=== PATIENT | male | born 1970 | race Caucasian/White ===

== ENCOUNTER 2021-03-13 06:11 | Emergency (ER) | payer OTHER ==
[~2021-03-13] VITALS: Ht 188 cm; Wt 100.0 kg
[2021-03-13] MEDS ORDERED: VITMTA PO (06:34)
[2021-03-13] MEDS ORDERED: VITATAB74 PO (06:34)
[2021-03-13] MEDS ORDERED: BACI1TAB4 PO (06:34)
[2021-03-13] MEDS ORDERED: KETOROLAC 60MG 2ML VIAL IM ONE (07:40)
[2021-03-13] MEDS ORDERED: diazePAM 10 MG TAB PO ONE (07:40)
--- OUTSIDE RECORDS SUMMARY | 2021-03-13 07:59 | CCD ---
Author Author [facility] Organization [facility] Address Unknown Phone Unavailable Care Team Providers Care Assistant Drafter Name Role Phone LAROCK, Anneliese SALAZAR [employer] TIME SALES SUPERVISOR Unavailable Unavailable LAROCK, Anneliese SALAZAR RADIO TIME SALES SUPERVISOR Unavailable Unavailable LAROCK, Anneliese SALAZAR RADIO TIME SALES SUPERVISOR Unavailable Unavailable LAROCK, Anneliese SALAZAR RADIO TIME SALES SUPERVISOR Unavailable Unavailable LAROCK, Anenliese SALAZAR RADIO TIME SALES SUPERVISOR Unavailable Unavailable LAROCK, Anneliese SALAZAR RADIO TIME SALES SUPERVISOR Unavailable Unavailable LAROCK, Anneliese SALAZAR RADIO TIME SALES SUPERVISOR Unavailable Unavailable LAROCK, Anneliese SALAZAR RADIO TIME SALES SUPERVISOR Unavailable Unavailable LAROCK, Anneliese SALAZAR RADIO TIME SALES SUPERVISOR Unavailable Unavailable LAROCK, Anneliese SALAZAR RADIO TIME SALES SUPERVISOR Unavailable Unavailable LAROCK, Anneliese SALAZAR RADIO TIME SALES SUPERVISOR Unavailable Unavailable LAROCK, Anneliese SALAZAR RADIO TIME SALES SUPERVISOR Unavailable Unavailable LAROCK, Anneliese SALAZAR RADIO TIME SALES SUPERVISOR Unavailable Unavailable LAROCK, Anneliese SALAZAR RADIO TIME SALES SUPERVISOR Unavailable Unavailable LAROCK, Anneliese SALAZAR RADIO TIME SALES SUPERVISOR Unavailable Unavailable LAROCK, Anneliese SALAZAR RADIO TIME SALES SUPERVISOR Unavailable Unavailable LAROCK, Anneliese SALAZAR RADIO TIME SALES SUPERVISOR Unavailable Unavailable LAROCK, Anneliese SALAZAR RADIO TIME SALES SUPERVISOR Unavailable Unavailable LAROCK, Anneliese SALAZAR RADIO TIME SALES SUPERVISOR Unavailable Unavailable LAROCK, Anneliese SALAZAR RADIO TIME SALES SUPERVISOR Unavailable Unavailable LAROCK, Anneliese SALAZAR RADIO TIME SALES SUPERVISOR Unavailable Unavailable LAROCK, Anneliese SALAZAR RADIO TIME SALES SUPERVISOR Unavailable Unavailable Re-disclosure Warning The records that you are about to access may contain information from federally-assisted alcohol or drug abuse programs. If such information is present, then the following federally mandated warning applies: This information has been disclosed to you from records protected by federal confidentiality rules (42 CFR part 2). The federal rules prohibit you from making any further disclosure of this information unless further disclosure is expressly permitted by the written consent of the person to whom it pertains or as otherwise permitted by 42 CFR part 2. A general authorization for the release of medical or other information is NOT sufficient for this purpose. The Federal rules restrict any use of the information to criminally investigate or prosecute any alcohol or drug abuse patient.The records that you are about to access may contain highly sensitive health information, the redisclosure of which is protected by Article 27-F of the [place] State Public Health law. If you continue you may have access to information: Regarding HIV / AIDS; Provided by facilities licensed or operated by the [facility] Office of Mental Health; or Provided by the [facility] Office for People With Developmental Disabilities. If such information is present, then the following [facility] mandated warning applies: This information has been disclosed to you from confidential records which are protected by state law. State law prohibits you from making any further disclosure of this information without the specific written consent of the person to whom it pertains, or as otherwise permitted by law. Any unauthorized further disclosure in violation of state law may result in a fine or alf sentence or both. A general authorization for the release of medical or other information is NOT sufficient authorization for further disc losure. Encounters Encounter Providers Location Date Indications Data Source(s ) Outpatient Attender: MARIE FRANCIS NP 10/25 05:56:07 PM EDT - 11/13/2020 06:31:58 PM EDT [facility] ([facility] ) Medications No Information Insurance Providers Payer name Policy type / Coverage type Policy ID Covered green party ID Covered green party's relationship to anna Policy Anna Plan Information [employer] emp [id number] Employee [id number] [facility] [place] [employer] [employer] [place]/ [id number] Self [id number] [employer] [id number] Problems, Conditions, and Diagnoses No Information Surgeries/Procedures No Information Results No Information Social History No Information
[2021-03-13] MEDS ORDERED: diazePAM 5MG TABLET PO ONE (08:00)
--- NOTE | 2021-03-13 08:32 | REPVR ---
PROCEDURE INFORMATION: Exam: CT Cervical Spine Without Contrast Exam date and time: 03/13/2021 8:10 AM Age: 50 years old Clinical indication: Neck pain. TECHNIQUE: Imaging protocol: Computed tomography images of the cervical spine without contrast. Radiation optimization: All CT scans at this facility use at least one of these dose optimization techniques: automated exposure control; mA and/or kV adjustment per patient size (includes targeted exams where dose is matched to clinical indication); or iterative reconstruction. COMPARISON: No relevant prior studies available. FINDINGS: Bones/joints: No acute fracture. Normal alignment. Discs/Spinal canal/Neural foramina: There are mild multilevel degenerative changes that include disc space narrowing, uncovertebral joint arthropathy, and hypertrophic spur formation. Sinuses: There are retention cysts/polyps in both maxillary sinuses. There is sphenoid sinus mucoperiosteal thickening. Lungs: Lung apices are normal. Soft tissues: Unremarkable. IMPRESSION: There are mild multilevel degenerative changes that include disc space narrowing, uncovertebral joint arthropathy, and hypertrophic spur formation. Full evaluation of the intervertebral discs and intraspinal contents is limited with CT imaging. Clinical findings will determine the need for further evaluation with MRI imaging. Electronically signed by: Praveen Cannon On 03/13/2021 08:32:22 AM
[2021-03-13] MEDS ORDERED: METH-1165 PO (08:57)
[2021-03-13] MEDS ORDERED: VALI10TA PO (08:57)
[2021-03-13] MEDS ORDERED: PRED20TA PO (08:57)
[2021-03-13] MEDS ORDERED: ANEC4CRE3 TOP (08:57)
[2021-03-13 09:05] VITALS: BP 136/91
== END 2021-03-13 09:10 | disposition home or self-care (01) ==
LOC: M ED 06:11
DX: M50.30 Other cervical disc degeneration, unspecified cervical region (principal); Z88.8 Allergy status to other drugs, medicaments and biological substances; F17.210 Nicotine dependence, cigarettes, uncomplicated
CPT/HCPCS: 72125; 96372; 99283; J1885

== ENCOUNTER 2024-01-11 13:23 | Emergency (ER) | payer OTHER ==
[~2024-01-11] VITALS: Ht 188 cm; Wt 97.7 kg
[~2024-01-11 13:23] MED LIST: ANEC4CRE3 TOP; BACI1TAB4 PO; DIAZ-654 PO; METH-1165 PO; PRED20TA PO; VITATAB74 PO; VITMTA PO
[2024-01-11 16:34] VITALS: BP 154/87; TEMP 97.1; O2SAT 99
== END 2024-01-11 17:00 | disposition home or self-care (01) ==
LOC: M ED 13:23
DX: S01.01XA Laceration without foreign body of scalp, initial encounter (principal); W22.8XXA Striking against or struck by other objects, initial encounter; Y92.009 Unspecified place in unspecified non-institutional (private) residence as the place of occurrence of the external cause; Y93.E5 Activity, floor mopping and cleaning; Y99.9 Unspecified external cause status; Z79.899 Other long term (current) drug therapy; Z88.8 Allergy status to other drugs, medicaments and biological substances

== ENCOUNTER → 2024-10-14 | Outpatient (CLI) | payer OTHER | LOC: M PLAIMG 10:04 | PROVIDERS: ATTEND Physician Assistant | DX: M47.22 Other spondylosis with radiculopathy, cervical region (principal); M50.20 Other cervical disc displacement, unspecified cervical region; M48.02 Spinal stenosis, cervical region ==

== ENCOUNTER → 2025-02-07 | Outpatient (CLI) | payer OTHER ==
[2025-02-07 13:09] LABS: COMPLEMENT C4 29.3 MG/DL (12-36)
[2025-02-07 13:12] LABS: IMMUNOGLOBULIN E 11.5 IU/ML (0-378)
[2025-02-08 11:16] LABS: ALPHA 1 ANTITRYPSIN 159 mg/dL (83-199)
[2025-02-08 17:08] LABS: ALMOND IGE FOOD < 0.10 kU/L (<0.10); BERMUDA GRASS IGE < 0.10 kU/L (<0.10); BIRCH IGE < 0.10 kU/L (<0.10); BRAZIL NUT CLASS IGE <0.10 ABSENT (<0.10); BRAZIL NUT IGE < 0.10 kU/L (<0.10); CASHEW NUT IGE FOOD < 0.10 kU/L (<0.10); CODFISH IGE FOOD < 0.10 kU/L (<0.10); COMMON RAGWEED SHORT IGE < 0.10 kU/L (<0.10); COWS MILK FOOD < 0.10 kU/L (<0.10); D001 IGE D PTERONYSSINUS < 0.10 kU/L (<0.10); D002-IGE D FARINAE < 0.10 kU/L (<0.10); E001-IGE CAT DANDER < 0.10 kU/L (<0.10); E003-IGE HORSE EPITHELIA/DAND < 0.10 kU/L (<0.10); E004-IGE COW DANDER < 0.10 kU/L (<0.10); E005-IGE DOG DANDER < 0.10 kU/L (<0.10); EGG WHITE FOOD 0.2 kU/L (<0.10); ELM IGE 0.11 kU/L (<0.10); HAZELNUT IGE FOOD < 0.10 kU/L (<0.10); I006 IGE COCKROACH < 0.10 kU/L (<0.10); IMMUNOGLOBULIN E FOR ALLERGENS 18 kU/L (<OR=114); M006 IGE ALTERNIA ALTERNATA 0.72 kU/L (<0.10); M1-PENICILLIUM NOTATUM < 0.10 kU/L (<0.10); MACADAMIA NUT CLASS IGE 0.10-0.34 VERY LOW (<0.10); MOUSE URINE IGE < 0.10 kU/L (<0.10); MUGWORT IGE < 0.10 kU/L (<0.10); OAK IGE 0.10 kU/L (<0.10); PEANUT IGE FOOD 0.11 kU/L (<0.10); ROUGH PIGWEED IGE < 0.10 kU/L (<0.10); SALMON IGE FOOD < 0.10 kU/L (<0.10); SCALLOP IGE FOOD < 0.10 kU/L (<0.10); SESAME SEED IGE FOOD 0.10 kU/L (<0.10); SHEEP SORREL IGE < 0.10 kU/L (<0.10); SHRIMP IGE FOOD < 0.10 kU/L (<0.10); SOYBEAN IGE FOOD < 0.10 kU/L (<0.10); T001-IGE MAPLE BOX ELDER < 0.10 kU/L (<0.10); T006-IGE MOUNTAIN CEDAR < 0.10 kU/L (<0.10); T014 COTTONWOOD IGE 0.15 kU/L (<0.10); TIMOTHY GRASS IGE < 0.10 kU/L (<0.10); TUNA IGE FOOD < 0.10 kU/L (<0.10); WALNUT IGE FOOD < 0.10 kU/L (<0.10); WALNUT TREE IGE < 0.10 kU/L (<0.10); WHEAT IGE FOOD 0.19 kU/L (<0.10); WHITE ASH IGE < 0.10 kU/L (<0.10); WHITE MULBERRY IGE < 0.10 kU/L (<0.10)
== END ==
LOC: M WUC 10:24
PROVIDERS: ATTEND Nurse Practitioner Family
DX: J30.1 Allergic rhinitis due to pollen (principal); J30.89 Other allergic rhinitis; H10.45 Other chronic allergic conjunctivitis; R05.9 Cough, unspecified; L27.2 Dermatitis due to ingested food

== ENCOUNTER → 2025-03-30 | Outpatient (CLI) | payer OTHER | LOC: M WUC 15:19 | PROVIDERS: ATTEND Allergy & Immunology | DX: L27.2 Dermatitis due to ingested food (principal); J30.1 Allergic rhinitis due to pollen; R05.3 Chronic cough ==